=== PATIENT | female | born 1975 | race Caucasian/White ===

== ENCOUNTER 2024-03-07 14:52 | Inpatient (IN) | payer BC, SELFPAY ==
[2024-03-07 10:58] VITALS: BP 148/85
[2024-03-07 11:44] VITALS: BMI 22.5
[2024-03-07 11:58] VITALS: BP 126/85
[2024-03-07 12:06] LABS: % Basophils 0.5 % (0-2); % Eosinophils 1.2 % (0-6); % Immature Granulocytes 0.3 % (0-0.5); % Lymphocytes 21.1 % (20.5-51.1); % Monocytes 4.6 % (1.7-9.3); % Neutrophils 72.3 % (42.2-75.2); Absolute Basophils 0.1 10^3/uL (0-0.2); Absolute Eosinophils 0.1 10^3/uL (0-0.7); Absolute Lymphocytes 2.4 10^3/uL (1.2-3.4); Absolute Monocytes 0.5 10^3/uL (0.1-0.6); Absolute Neutrophils 8.1 10^3/uL (1.4-6.5); Hematocrit 43.7 % (37.0-47.0); Hemoglobin 14.6 g/dL (12.0-16.0); Mean Corp Hgb Conc. 33.4 g/dL (33.0-37.0); Mean Corpuscular Hgb 28.5 pg (27.0-31.0); Mean Corpuscular Volume 85.2 fL (81.0-99.0); Mean Platelet Volume 9.5 fL (7.4-10.4); Nucleated Red Blood Cells % 0 %; Platelet Count 531 10^3/uL (130-400); Red Blood Cell Count 5.13 10^6/uL (4.20-5.40); Red Cell Dist. Width 12.6 % (11.5-14.5); White Blood Cell Count 11.3 10^3/uL (4.8-10.8)
[2024-03-07 12:20] LABS: ALT (SGPT) 19 U/L (0-35); AST (SGOT) 27 U/L (14-36); Albumin 4.7 g/dl (3.5-5.0); Alkaline Phosphatase 61 U/L (38-126); Blood Urea Nitrogen 14 mg/dl (7-17); Carbon Dioxide 26 mmol/L (22-30); Chloride 105 mmol/L (98-107); Creatine Phosphokinase 104 U/L (30-135); Glucose 104 mg/dl (70-99); Potassium 4.3 mmol/L (3.5-5.1); Sodium 136 mmol/L (135-145); Total Bilirubin 0.8 mg/dl (0.2-1.3); Total Protein 8.3 g/dl (6.3-8.2); eGFR > 60.00
--- NOTE | 2024-03-07 12:31 | ED.GENMED ---
History of Present Illness
General
Chief Complaint: Swelling
Time Seen by Provider: 03/07/24 11:35
Travel History
Have you had any contact with someone who has COVID-19?: No
Do you have any symptoms of coronavirus? Fever > 100 degrees, chills, cough, shortness of breath, sore throat, loss of taste or smell, muscle aches, or headache?: No
History of Present Illness
History of Present Illness:
28-year-old female with no previous past medical history presents to the emergency department for evaluation of bilateral lower extremity weakness that she noticed yesterday while she was out for a run. She felt as though her legs were going to
give out as she was running. She does run frequently throughout each week and has never had this happen before. She denies any crampy discomfort when running. Denies any recent fevers or chills. Denies any recent vaccinations. No numbness to
the legs currently. She also notes acute onset of right upper extremity pain and swelling without trauma that began this morning. Denies any recent upper extremity overhead activities or exertion. No chest pain or shortness of breath
Past History
Past History
ED Past Medical History: None
ED Past Surgical History: None
Social History
Tobacco: Non-smoker
Review of Systems
Review of Systems
Allergies reviewed?: Yes
All Other Systems: ROS reviewed and negative except as documented in HPI and ROS
Phy Exam
Physical Exam
Physical Exam:
GEN: Well appearing, NAD, WDWN
Eyes: PERRLA, EOMs intact, no scleral icterus
HENT: NCAT, oral mucosa moist, no JVD
Lungs: CTAB, no wheezes, rales, rhonchi, normal chest wall excursion
Cardiac: RRR, no M/R/G, no peripheral edema. Radial pulses 2+ bilat
Abdomen: S, NT, ND, NABS, no masses or hepatosplenomegaly
Neuro: AO x 3, bilateral lower extremity strength is 5/5 in all [place], there does appear to be easy fatigability strength is. Patellar reflexes 2+ bilaterally
MSK: Obvious edema of the proximal right upper extremity strong radial pulses bilaterally, normal sensation to distal upper extremities
Skin: No rashes, petechiae. Normal color, no pallor or jaundice.
Psych: Calm, cooperative, proper hygiene
Scores
Heart Failure Risk
Heart Failure Risk Score: Not Applicable
Course
Orders/Labs/Results
Orders:
Orders
03/07/24 10:51
EKG [Electrocardiogram (*1)] Urgent
Reason for Study: Chest Pain
EKG- Treatment ONCE
03/07/24 11:53
CR Chest - 2 Views Urgent
Comment:
Reason For Exam: RUE edema/neck pain
Venous Doppler Upr Ext Right [US Periph Venous UPPER Ext RT] Urgent
Comment:
Reason For Exam: RUE edema/pain
03/07/24 11:57
CPK [Creatine Phosphokinase] Urgent
Complete Blood Count/With Diff Urgent
Comprehensive Metabolic Panel Urgent
03/07/24 14:03
Heparin 5,500 units IV NOW STA
Nursing to Place Non Medication Order As Directed
Physician Order: PTT 6 hours after initial start of Heparin infusion
Above order entered?: Yes
03/07/24 14:14
PTT Urgent
Comment: Obtain baseline before beginning heparin infusion if not already collected
03/07/24 14:15
Heparin 56996 Units/250 ml 25,000 units in 250 ml IV PER PROTOCOL
Weight to be used for heparin protocol in kilograms (kg):: 69
Protocol:: DVT/PE
PTT Goal Range to be used:: PTT 73 to 111 seconds
Order type:: Initial
INITIAL Infusion Dose (UNITS/KG/hr) & then follow protocol:: 18 units/kg/hr
Infusion Dose in UNITS/hr & then follow protocol (UNITS/hr):: 1,200
INFUSION RATE in mL/hr & then follow protocol (mL/hr):: 12
For DVT/PE algorithm, re-bolus for low PTT?: Yes
PTT less than or equal to 64 seconds:: Re-bolus 80 units/kg (max 10,000units). Increase by 300 units/hr
(+ 3mL/hr)
PTT 64.1 to 72.9 seconds:: Re-bolus 40 units/kg (max 5,000 units). Increase by 100 units/hr
(+ 1mL/hr)
PTT 73 to 111 seconds:: Target Range. No change in rate.
PTT 111.1 to 130.9 seconds:: Decrease rate by 100 units/hr (- 1 mL/hr)
PTT 131 to 199.9 seconds:: HOLD for 1 hr. Then decrease by 200 units/hr (- 2mL/hr)
PTT greater than or equal to 200 seconds:: HOLD for 2 hrs & Notify Provider. Then decrease by 300 units/hr
(- 3mL/hr)
Lab follow-up:: Each change, PTT q6h until 2 consecutive are therapeutic. Then
PTT daily.
03/07/24 14:24
Heparin 5,500 units IV PRN PRN
03/07/24 14:25
Heparin 2,800 units IV PRN PRN
03/07/24 14:36
CT Chest Pe Study Urgent
Comment:
Reason For Exam: RUE DVT, eval for PE
03/07/24 14:37
Admit/Transfer Patient As Directed
Co-Sign Provider:
Level of Care: Inpatient admission
Assign to:: Medical/Surgical
Physician / Group: hosp
Diagnosis: Subclavian DVT
Reason for Hospitalization: Subclavian DVT
Expected length of stay greater than two midnights?: Yes
ELOS- Estimated Length of Stay in days: 2
I certify the patient meets the requirements for IP care: Yes
03/07/24 14:40
Code Status As Directed
Resuscitation Status: Full Code
03/07/24 14:45
Anti-Thrombin III Activity [S] Routine
Cardiolipin Ab Panel [S] Routine
PT (F2)c.97G>A(T48345R)Variant [S] Routine
Protein C, Total Antigen [S] Routine
Protein S Total Antigen [S] Routine
03/07/24 Dinner
Regular
At Your Request: Full Participation
03/07/24 15:39
Acetaminophen [Tylenol] 650 mg PO Q4HPRN PRN
Bisacodyl [Dulcolax] 10 mg RECTAL [id number] PRN
Docusate W/Senna [Senokot-S] 1 tablet PO BIDPRN PRN
Polyethylene Glycol Powder [Miralax] 17 grams PO DAILYPRN PRN
Tramadol HCl [Ultram] 50 mg PO Q6HPRN PRN
03/07/24 15:39
Activity As Directed
Activity Level: Out of Bed- Chair
Pneumatic Compression Sleeves As Directed
Type: Knee high
Vascular Checks As Directed
Location: rue
Frequency: q12h
Vital Signs As Directed
Frequency: Per unit guidelines
Pulse Ox/spot Check [RESP] Routine
Quantity: 1
Rx Incentive Spirometry [RESP] Routine
Frequency: q1h while awake
DX Deep Vein Thrombosis Video Routine
03/07/24 20:30
PTT Urgent
03/08/24 06:00
Complete Blood Count/No Diff IN AM
TSH IN AM
Abnormal Lab Results
03/07/24
11:57
WBC 11.3 H 10^3/uL
(4.8-10.8)
Plt Count 531 H 10^3/uL
(130-400)
Absolute Neuts (auto) 8.1 H 10^3/uL
(1.4-6.5)
Glucose 104 H mg/dl
(70-99)
Total Protein 8.3 H g/dl
(6.3-8.2)
03/07/24 11:57
03/07/24 11:57
Vital Signs
Initial and Last Documented VS:
Initial Vital Signs
Temp Pulse Resp BP Pulse Ox
98.9 F 60 20 148/85 100
03/07/24 10:58 03/07/24 10:58 03/07/24 10:58 03/07/24 10:58 03/07/24 10:58
Last Documented Vital Signs
Temp Pulse Resp BP Pulse Ox
99.0 F 71 18 162/86 100
03/07/24 15:48 03/07/24 15:48 03/07/24 15:48 03/07/24 15:48 03/07/24 15:48
MDM/Problems Addressed
MDM/Problems Addressed:
Patient found unprovoked right subclavian DVT. She has no chest pain or shortness of breath to suggest pulmonary embolism, additionally she has no vital signs and no hypoxia thus would not be a thrombolytic candidate even if there was a PE
identified. This. Leg weakness objective weakness on exam and reflexes are normal correlating to a DVT or if alternative etiology exists. Labs are otherwise normal. Due to the uncommon nature of unprovoked upper extremity DVTs will admit to the
hospital service for further workup
*Critical Care Note
Total Time (30-74mins, 75-104mins- exclusive of procedures): Not Applicable
ED Attending Note
-
Portions of this chart may have been created with voice recognition software.� Occasional wrong word or��sound alike� substitutions may have occurred due to the inherent limitations of voice recognition software.
Discharge Plan
Departure
Patient Disposition: Admit
Date of Disposition: 03/07/24
Time of Disposition: 14:07
Presentation/result/management discussed w/ accepting MD/DO: Hospitalist
Discharge Problem:
Acute deep vein thrombosis (DVT) of right upper extremity, Bilateral leg weakness
Interventions
Interventions:
*Risk Screen - Suicide Last Done: 03/07/24 11:44
*General Assessment Last Done: 03/07/24 11:02
*Neglect/Abuse Screening Last Done: 03/07/24 11:44
ED- Fall Risk Assessment Last Done: 03/07/24 11:44
*ED COVID-19 Vaccine History Last Done: 03/07/24 11:02
*Nursing Disposition Last Done: 03/07/24 15:40
ED- Cardiac Assessment Last Done: 03/07/24 11:44
ED- Pulmonary Assessment Last Done: 03/07/24 11:44
ED-Skin Assessment Last Done: 03/07/24 11:44
Discharge Date and Time
Discharge Date/Time: 03/07/24 15:41
[2024-03-07] MEDS: HEPARIN 5500 UNITS IV (14:27)
[2024-03-07 14:29] LABS: APTT 29.3 Sec (23.4-35.0)
[2024-03-07] MEDS: HEPARIN 25000 UNITS/250 ML IV (14:29)
--- NOTE | 2024-03-07 14:46 | HPS.HSE ---
Family Physician
-
Family Physician: Justus Souza
Chief Complaint
-
Followed by right arm discomfort and swelling
History of Present Illness
48-year-old female otherwise healthy and active presented to the ED today after initial complaints of bilateral she noticed yesterday while out for her usual run that she takes about 3 times a week. Described as feeling like her legs were going to
give out'. She then noticed later right upper extremity pain mostly referred to the upper arm and right side neck area this morning with some swelling she had also been describing some difficulty taking a deep breath referred to the right scapular
region yesterday. She is about to go out for her usual run but decided to come to the emergency room with her concerns. She did not describe any chest pain or leg pains.
On inquiring about her medical history she has had 2 children without any issues with pregnancies her mother of a brain aneurysm in her 50s as the only other significant medical issue she denies autoimmune history aside from being and or
suspected to have gluten sensitivity although she has been checked for celiac and found to be negative.
She is not a cigarette smoker
Medical History
Past Medical History
Past Medical History: Reports None
Past Surgical History: Reports None
Social History
Tobacco: Non-smoker
Alcohol: None
Drug: None
Personal:
Living: With Family
Employment: Employed
Family History
Family History: Other (Mother with brain aneurysm in her 50s)
Allergies / Home Medications
Allergies reflects when Allergies were last updated in [employer].
Home Medications with original date entered in [employer]
Allergy/Medication List:
Allergies
Allergy/AdvReac Type Severity Reaction Status Date / Time
No Known Allergies Allergy Verified 03/07/24 11:04
Home Medications
collagen 1 dose PO SUFRSA 03/07/24
multivitamin with minerals-folic acid 200 mcg chewable tablet (Multivitamin Gummies) 1 tab PO DAILY PRN supplement 03/07/24
Review of Systems
-
History Source: Patient
Constitutional: Reports Fatigue (Mostly in her legs)
EENT: Reports No Symptoms
Respiratory: Reports Other (Describes some sensation of inability to take a deep breath in the last 24 hours)
Cardiac: Reports No Symptoms
Abdomen/GI: Reports No Symptoms
: Reports No Symptoms
Musculoskeletal: Reports Muscle Pain and Edema
Physical Exam
Vital Signs
Vital Signs
Temp Pulse Resp BP Pulse Ox
98.9 F 68 15 126/85 100
03/07/24 10:58 03/07/24 14:15 03/07/24 12:30 03/07/24 11:58 03/07/24 14:15
Physical Exam
General: Well Developed
HEENT: NormoCephalic
Respiratory: Clear
Cardiac: S1/S2
GI: Soft, Non Tender and Non Distended
Musculoskeletal: No Cyanosis and Edema, Right Upper Extremity (As compared to the left/some venous distention)
Skin: Rash (Mildly erythematous right upper extremity inspection of the shoulder)
Neuro: Awake, Alert, Oriented and AO x 3
Psych: Calm
Laboratory Results
-
03/07/24 11:57
03/07/24 11:57
Laboratory Results
APTT 29.3 Sec (23.4-35.0) 03/07/24 14:14
Total Bilirubin 0.8 mg/dl (0.2-1.3) 03/07/24 11:57
AST 27 U/L (14-36) 03/07/24 11:57
ALT 19 U/L (0-35) 03/07/24 11:57
Alkaline Phosphatase 61 U/L (38-126) 03/07/24 11:57
Data Reviewed
-
Critical Care Time (in minutes): 56
Lab Data: Labs Reviewed by me (Normal CBC and chemistries except for mild thrombocytosis)
Impression/Plan
-
IMPRESSION:
48-year-old female otherwise healthy and active presented to the ED today after initial complaints of bilateral she noticed yesterday while out for her usual run that she takes about 3 times a week. Described as feeling like her legs were going to
give out'. She then noticed later right upper extremity pain mostly referred to the upper arm and right side neck area this morning with some swelling she had also been describing some difficulty taking a deep breath referred to the right scapular
region yesterday. She is about to go out for her usual run but decided to come to the emergency room with her concerns. She did not describe any chest pain or leg pains.
On inquiring about her medical history she has had 2 children without any issues with pregnancies her mother of a brain aneurysm in her 50s as the only other significant medical issue she denies autoimmune history aside from being and or
suspected to have gluten sensitivity although she has been checked for celiac and found to be negative. She denies any weight lifting exercises or throwing motions there are repetitive never had issues with any history of neck or cervical issues or
cervical rib type history
She is not a cigarette smoker
Right subclavian DVT
-Unprovoked
-Seen on venous Doppler of right upper extremity with occlusive thrombus of the proximal and distal subclavian internal jugular vein was patent
-Consider thoracic outlet or other compressive anomaly/Paget-Schroetter syndrome/does not describe repetitive arm movements or weight lifting type activity but is quite active
-Would obtain CTA of the chest and also a PE study given her symptoms/no tachypnea tachycardia or desaturation noted/assess for thoracic outlet anatomy
-Started on heparin drip
-Obtain hypercoagulable workup
-Consideration for vascular versus hematologic workup with consultations based on above results
-Cannot explain lower extremity weakness she described as exam benign/initial systemic lab results benign
DVT prophylaxis with heparin drip and SCDs
Full CODE STATUS
[2024-03-07 15:42] VITALS: BMI 22.3
[2024-03-07 15:48] VITALS: BP 162/86
[2024-03-07 15:49] VITALS: BMI 22.3
[2024-03-07 20:26] VITALS: BP 154/96
[2024-03-07 20:59] LABS: APTT 101.1 Sec (23.4-35.0)
--- NOTE | 2024-03-07 22:35 | PTCARENOTE ---
At aprox 2019 pt rang and said she felt her heart beating 'funny'. Vitals stable, 154/96 HR 64. Pt asked if we could monitor her heart. Tele monitor applied to patient at that time. Pt SR/SB, heart rate 58-59 on monitor. No ectopy noted. GUIDANCE COUNSELOR on
floor and asked for tele orders.
--- NOTE | 2024-03-07 22:38 | PTCARENOTE ---
[facility] 1540 patient rec'd from ED to room 337-2. Pt vitals stable. Assessment and admission done. Pt with heparin drip running at 1200 units per unit per protocol. Pt advised of plan to repeat labs at 2019. Pt with at side and will order
dinner.
--- NOTE | 2024-03-07 22:42 | PTCARENOTE ---
[facility] 1540 patient rec'd from ED to room 337-2. Pt vitals stable. Assessment and admission done. Pt with heparin drip running at 1200 units per hour per protocol. Pt advised of plan to repeat labs at 2019. Pt with at side and will order
dinner.
--- NOTE | 2024-03-07 22:43 | W.PN.UPDATE ---
Update Note
Progress Note Update
Floor nurse reporting patient with new complaint of palpitations. Patient is admitted with right subclavian DVT. VSS. Order placed for telemetry.
[2024-03-07 23:30] VITALS: BP 137/77
[2024-03-08 03:13] LABS: APTT 83.8 Sec (23.4-35.0)
[2024-03-08 03:50] VITALS: BP 126/66
[2024-03-08 07:30] VITALS: BP 132/82
[2024-03-08 08:39] LABS: Hematocrit 39.4 % (37.0-47.0); Hemoglobin 13.4 g/dL (12.0-16.0); Mean Corpuscular Volume 82.4 fL (81.0-99.0); Mean Platelet Volume 9.5 fL (7.4-10.4); Platelet Count 507 10^3/uL (130-400); Red Blood Cell Count 4.78 10^6/uL (4.20-5.40); Red Cell Dist. Width 12.8 % (11.5-14.5); White Blood Cell Count 10.2 10^3/uL (4.8-10.8)
[2024-03-08 09:06] LABS: APTT 69.2 Sec (23.4-35.0)
[2024-03-08] MEDS: HEPARIN 2800 UNITS IV (09:35)
[2024-03-08 09:41] LABS: TSH 2.42 uIU/ml (0.47-4.68)
[2024-03-08] MEDS: HEPARIN 25000 UNITS/250 ML IV (11:24)
[2024-03-08 11:30] VITALS: BP 128/70
--- NOTE | 2024-03-08 13:53 | CON.VAS ---
Consultation
Consultation Request
Date/Time Consultation Requested: 03/08/241329
Date/Time Consultation Performed: 03/08/241329
Requesting Provider: Genaro Gonzalez MD
Performing Provider: Anuj Licea III, MD; Nidhi Castro PA-C
Reason for Consultation: Right subclavian DVT
Medical History
-
Chief Complaint: Right upper extremity pain and edema
History of Present Illness:
48 year old female with no significant PMH presented to the ED with right upper extremity pain and edema. She initially noted that she was unable to deeply inspire while running on Friday. Since then she noticed progressively worsening discomfort
and swelling of her right upper extremity. She also notes bulging veins in her right arm and hand. Venous duplex was performed which revealed acute occlusive DVT in the right subclavian vein. CT chest was negative for PE. She currently denies chest
pain or shortness of breath. She has been started on anticoagulation with heparin drip. No known prior history of DVT. She is physically active, runs for 30 minutes 3 times per week but does not do any overhead lifting/ sports with repetitive
movements.
Past Medical History
Past Medical History: None
Past Surgical History: None
Social History
Tobacco: Non-Smoker
Alcohol: None
Drug: None
Personal:
Living: With Family
Employment: Employed
Family History
Family History: Other (mother () - brain aneurysm )
Allergies / Home Medications
Allergy/AdvReac Type Severity Reaction Status Date / Time
No Known Allergies Allergy Verified 03/07/24 11:04
�Medication �Instructions �Recorded �Confirmed �Type
collagen 1 dose PO SUFRSA Supplement 03/07/24 03/07/24 History
multivitamin with minerals-folic 1 tab PO DAILY PRN supplement 03/07/24 03/07/24 History
acid 200 mcg chewable tablet
(Multivitamin Gummies)
Review of Systems
-
History Source: Patient
All other systems: Negative unless noted
Musculoskeletal: Reports Edema (right upper extremity)
Physical Exam
Vital Signs
Temp Pulse Resp BP Pulse Ox
97.5 F 65 16 128/70 96
03/08/24 11:30 03/08/24 11:30 03/08/24 11:30 03/08/24 11:30 03/08/24 11:30
Lab Results
03/08/24 08:30
03/07/24 11:57
Physical Exam
General: Well Developed, Well Nourished and No Apparent Distress
HEENT: Normocephalic and Atraumatic
Respiratory: Non Labored Respirations
Cardiac: S1/S2 and Regular Rhythm
Breast: Deferred by me
Musculoskeletal: Edema (right upper extremity edema, vein engorgement noted. right hand warm, pink, well perfused, sensorimotor intact. )
Skin: Warm and Dry
Neuro: Awake, Alert and Oriented
Psych: Calm
Assessment / Plan
-
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
- Continue heparin gtt
- Recommend elevation/ compression of RUE with YUE wrap
- Consider hematology consult for hypercoagulable workup
- Recommend RUE venogram with initiation of thrombolysis followed by first rib resection
- Patient would like to discuss options with family prior to proceeding, will follow up decision
--- NOTE | 2024-03-08 15:16 | CM ---
Alert awake oriented patient who lives with her Daniel and dgt Natalie in a 2 story home with 1 steps to enter and 12 steps to bed/bathroom.
She is independent in driving and in all activities of daily living.Offered VN she declined.She was seen by Vascular surgery. She is currently on Heparin gtt.
No adaptive devices
Never had VN/SNF
Pharmacy [facility]
PCP Dr Souza
PLAN Home declined VN Pt said she may want Vascular surgery at [place] instead
[2024-03-08 15:30] VITALS: BP 120/80
[2024-03-08 16:07] LABS: APTT 48.1 Sec (23.4-35.0)
[2024-03-08] MEDS: HEPARIN 5500 UNITS IV (16:29)
--- NOTE | 2024-03-08 17:45 | W.PN.HOSP.TC ---
Today's Communication/Plan
-
Continue IV heparin
Pending patient's decision on intervention as per vascular surgery.
Assessment / Plan
Assessment / Plan
Impression:
48 years old female with no prior medical history presented with right upper extremity pain and edema.
Right subclavian DVT
High clinical suspicion for thoracic outlet syndrome.
Initiated on IV heparin.
Vascular surgery consult appreciated with no further plan for venogram and thrombosis across the right subclavian vein and follow-up definitive surgical procedure for thoracic outlet decompression with transaxillary first rib resection
In addition hypercoagulable workup pending
Hematology consultation pending.
Anticipated Discharge: > 48 hours
Subjective/Interval History
-
Date of Service: March 08, 2024
Objective Data
-
Labs:
Laboratory Results
03/08/24 03/08/24 03/08/24
08:29 08:30 15:40
WBC 10.2
Hgb 13.4
Hct 39.4
Plt Count 507 H
APTT 69.2 H 48.1 H
03/08/24
22:30
WBC
Hgb
Hct
Plt Count
APTT Pending
Vital Signs:
Vital Signs
Temp Pulse Resp BP Pulse Ox
98.2 F 77 16 120/80 97
03/08/24 15:30 03/08/24 15:30 03/08/24 15:30 03/08/24 15:30 03/08/24 15:30
I&O
03/07/24 03/08/24 03/09/24
06:59 06:59 06:59
Intake Total 360 / 360
Balance 360 / 360
Physical Exam
-
General: Well Developed and No Apparent Distress
HEENT: Normocephalic, Atraumatic and Moist Mucous Membranes
Respiratory: Clear to Auscultation
Cardiac: Regular Rhythm and S1/S2; Negative Murmur, Rub or Gallop
GI: Soft, Nontender, Nondistended and Normal Bowel Sounds; Negative Organomegaly
Rectal: Deferred by Provider
Musculoskeletal: No Clubbing, No Cyanosis and No Edema
Skin: Negative Rash
Neuro: Nonfocal/Grossly Intact
[2024-03-08 19:22] VITALS: BP 121/80
[2024-03-08 23:23] LABS: APTT > 200 Sec (23.4-35.0)
[2024-03-08 23:35] VITALS: BP 113/71
[2024-03-09 03:47] VITALS: BP 114/73
[2024-03-09 07:30] VITALS: BP 108/65
[2024-03-09] MEDS: HEPARIN 25000 UNITS/250 ML IV (08:09)
[2024-03-09 08:12] LABS: APTT 47.7 Sec (23.4-35.0)
[2024-03-09] MEDS: HEPARIN 5500 UNITS IV (08:39)
--- NOTE | 2024-03-09 10:07 | CON.ONC ---
Impression
Impression
Seemingly unprovoked right upper extremity DVT
Suspected thoracic outlet syndrome
Thrombocytosis
Plan
Plan
Continue anticoagulation, recommend transitioning heparin to Eliquis, with loading dose per protocol
No past history of thrombocytosis, though she will benefit from outpatient hematology evaluation for possible essential thrombocytosis, along with full thrombophilia work-up, timing to be determined as it's best done off anticoagulation
She plans to seek further evaluation at [facility] with vascular surgery and hematology secondary to her insurance
I provided her with my name and contact information should she desire hematology follow-up locally
Patient History
History of Present Illness
This is a 48-year-old female without medical history who presented to the emergency room yesterday with discomfort in her right arm and prominent right arm veins. She is an active runner, but denies any trauma to her arm, heavy lifting. She is
right-handed. Venous Doppler showed occlusive thrombus within the right subclavian vein. CT PE study showed no evidence for pulmonary embolism, no aortic dissection.
She was started on IV heparin, admitted to the hospital. She was seen by vascular surgery who recommended surgery for thoracic outlet syndrome, though she remains reluctant. 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
she wishes to get a second opinion at [facility].
She denies any personal or family history of venous thromboembolism. Her mother of a brain aneurysm and a maternal aunt had a cardiovascular aneurysm. She is a non-smoker, does not take any hormones, steroids, or other medications. 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
Blood work is noted for thrombocytosis, with platelet count of 531 at admission, 507 yesterday.
Past-Medical/Surgical History
Past medical, surgical, social, and family history is as per the HPI
Patient Medication
�Medication �Instructions �Recorded �Confirmed �Last Taken �Type
collagen 1 dose PO SUFRSA Supplement 03/07/24 03/07/24 Unknown History
multivitamin with minerals-folic 1 tab PO DAILY PRN supplement 03/07/24 03/07/24 Unknown History
acid 200 mcg chewable tablet
(Multivitamin Gummies)
Active Medications
Generic Name Dose Route Start Last Admin
Trade Name Freq PRN Reason Stop Dose Admin
Acetaminophen 650 mg 03/07/24 15:39
Acetaminophen 325 Mg Tablet PO 04/04/24 15:38
Q4HPRN PRN
mild pain/ALEXANDRE/temp> 100.4F
Bisacodyl 10 mg 03/07/24 15:39
Bisacodyl 10 Mg Rectal Suppository RECTAL 04/04/24 15:38
[id number] PRN
constipation
Heparin Sodium 5,500 units 03/07/24 14:24 03/09/24 08:39
Heparin 80 Units/Kg Rebolus-Do Not Discard IV 04/04/24 14:23 5,500 units
PRN PRN Administration
PTT < OR = 64 seconds
Heparin Sodium 2,800 units 03/07/24 14:25 03/08/24 09:35
Heparin 40 Units/Kg Rebolus-Do Not Discard IV 04/04/24 14:24 2,800 units
PRN PRN Administration
PTT = 64.1 to 72.9 seconds
Heparin Sodium 25,000 units in 250 mls @ 0 mls/hr 03/07/24 14:15 03/09/24 08:09
Heparin 18329 Units/250 Ml IV 250 mls
PER PROTOCOL VICTOR HUGO Administration
Protocol
Per Protocol
Polyethylene Glycol 17 grams 03/07/24 15:39
Polyethylene Glycol Powder 17 Grams Packet PO 04/04/24 15:38
DAILYPRN PRN
constipation
Senna/Docusate Sodium 1 tablet 03/07/24 15:39
Docusate W/Senna (Elisha-Colace) Tablet PO 04/04/24 15:38
BIDPRN PRN
constipation
Sodium Chloride 0 flush 03/07/24 16:00
Sodium Chloride 0.9% (Flush) Syringe IV 04/04/24 15:59
PER PROTOCOL VICTOR HUGO
Tramadol HCl 50 mg 03/07/24 15:39
Tramadol Hcl 50 Mg Tablet PO 04/04/24 15:38
Q6HPRN PRN
moderate pain
Review of Systems
-
All Other Systems: Not reviewed unless documented
Physical Exam
-
General: Well Developed, Well Nourished, No Apparent Distress, Comfortable and Conversant
HEENT: Negative Jaundice
Cardiology: Normal Sinus Rhythm
Musculoskeletal: No Clubbing, No Cyanosis, No Edema and Other (Slightly prominent right upper extremity superficial veins)
Neurology: Non Focal and No Lateralizing Symptoms
Skin: Warm and Dry
Psych: Intact Judgement/Insight
Labs
Lab Results
WBC 10.2 10^3/uL (4.8-10.8) 03/08/24 08:30
RBC 4.78 10^6/uL (4.20-5.40) 03/08/24 08:30
Hgb 13.4 g/dL (12.0-16.0) 03/08/24 08:30
Hct 39.4 % (37.0-47.0) 03/08/24 08:30
MCV 82.4 fL (81.0-99.0) 03/08/24 08:30
MCH 28.0 pg (27.0-31.0) 03/08/24 08:30
MCHC 34.0 g/dL (33.0-37.0) 03/08/24 08:30
RDW 12.8 % (11.5-14.5) 03/08/24 08:30
Plt Count 507 10^3/uL (130-400) H 03/08/24 08:30
MPV 9.5 fL (7.4-10.4) 03/08/24 08:30
Abs Immat Gran (auto) 0.0 10^3/uL (0-0.05) 03/07/24 11:57
Absolute Neuts (auto) 8.1 10^3/uL (1.4-6.5) H 03/07/24 11:57
Absolute Lymphs (auto) 2.4 10^3/uL (1.2-3.4) 03/07/24 11:57
Absolute Monos (auto) 0.5 10^3/uL (0.1-0.6) 03/07/24 11:57
Absolute Eos (auto) 0.1 10^3/uL (0-0.7) 03/07/24 11:57
Absolute Basos (auto) 0.1 10^3/uL (0-0.2) 03/07/24 11:57
Immature Gran % 0.3 % (0-0.5) 03/07/24 11:57
Neutrophils % 72.3 % (42.2-75.2) 03/07/24 11:57
Lymphocytes % 21.1 % (20.5-51.1) 03/07/24 11:57
Monocytes % 4.6 % (1.7-9.3) 03/07/24 11:57
Eosinophils % 1.2 % (0-6) 03/07/24 11:57
Basophils % 0.5 % (0-2) 03/07/24 11:57
Creatinine 0.6 mg/dL (0.6-1.0) 03/07/24 11:57
Vital Signs
Vital Signs
Temp Pulse Resp BP Pulse Ox
98.6 F 69 14 108/65 98
03/09/24 07:30 03/09/24 07:30 03/09/24 07:30 03/09/24 07:30 03/09/24 07:30
--- NOTE | 2024-03-09 11:21 | W.DS.TRANS ---
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
-
Discharge Instructions:
Discharge Diagnosis/Procedures Right subclavian DVT with cocnern for thoracic
outlet syndrome
Diet Regular
Instructions:
Stand-Alone Forms:
Changes to Home Medications: Yes
Discharge Medications:
DC Medications w/original date entered in [employer]
collagen 1 dose PO SUFRSA Supplement 03/07/24
multivitamin with minerals-folic acid 200 mcg chewable tablet (Multivitamin Gummies) 1 tab PO DAILY PRN supplement 03/07/24
apixaban 5 mg tablet (Eliquis) 10 mg (2 x 5 mg) PO BID #90 tabs 03/09/24
Home Medication Changes
Eliquis initiated
Pending Results: Yes
Additional Pending Results:
Hypercoagulable workup labs
[2024-03-09 12:00] VITALS: BP 121/79
[2024-03-09] MEDS: ELIQUIS 10 MG PO (12:01)
--- NOTE | 2024-03-09 14:42 | CM ---
entered order for discharge.
Pt will follow up with [facility] for vascular surgery.
Family drive her home.
Offered Vn she declined need.
PLAN Home no needs Follow with [facility]
[2024-03-10 09:42] LABS: Cardiolipin IgA Antibody <10 APL (<=11); Cardiolipin IgM Antibody <10 MPL (<=12); Cardiolipin Igg Antibody <10 GPL (<=14)
[2024-03-10 12:44] LABS: Protein S Total Antigen 102 % (63-126)
[2024-03-10 15:21] LABS: Anti-Thrombin III Activity 107 % (76-128)
[2024-03-10 16:16] LABS: Protein C, Total Antigen >95 % (63-153)
[2024-03-12 00:01] LABS: PT (F2) G20210A Variant Negative; Pt Gene Variant-PCR Specimen Whole Blood
== END 2024-03-09 13:13 | disposition home or self-care (01) | DRG 300 ==
LOC: 3 WEST ACU 14:52
PROVIDERS: Physician Assistant; ADMITTING PHYSICIAN Internal Medicine; ATTENDING PHYSICIAN Internal Medicine; CONSULT PHYSICIAN Surgery Vascular Surgery; EMERGENCY PHYSICIAN Emergency Medicine; FAMILY PHYSICIAN Family Medicine; OTHER PHYSICIAN Internal Medicine Hematology & Oncology
DX: I82.621 Acute embolism and thrombosis of deep veins of right upper extremity (principal); I87.1 Compression of vein
CPT/HCPCS: 71046; 71275; 80053; 81240; 82550; 84443; 85025; 85027; 85300; 85302; 85305; 85730; 86147; 93005; 93971; 96374; 99285; Q9967